=== PATIENT | female | born 1935 | race Caucasian/White ===

== ENCOUNTER 2016-11-20 05:57 | Inpatient (IN) | payer OTHER ==
[~2016-11-20] VITALS: Ht 152.4 cm; Wt 76.0 kg
[2016-11-20 06:17] VITALS: BP 152/66
[2016-11-20 06:35] VITALS: BP 152/66
[2016-11-20] MEDS ORDERED: VERAPAMIL HYDR240 MG PO (12:57)
[2016-11-20] MEDS ORDERED: HYDROCHLOROTH12.5 M2 PO (12:57)
[2016-11-20] MEDS ORDERED: ASPIR 8181 MG PO (12:57)
[2016-11-20 15:03] LABS: T3 TOTAL 1.06 ng/mL
[2016-11-20 16:00] LABS: FREE T4 1.21 ng/dL (0.76-1.46); FREE THYROXINE INDEX 2.7 ug/dL (1.4-4.5); T4(THYROXINE) 7.7 ug/dL (4.7-13.3)
[2016-11-20 16:27] LABS: CHOLESTEROL/HDL RATIO 2.7; MAGNESIUM 1.5 mg/dL (1.8-2.4); PHOSPHOROUS 3.4 mg/dL (2.5-4.9)
[2016-11-20 17:14] VITALS: BP 132/60
[2016-11-20 21:38] VITALS: BP 124/56
[2016-11-21 06:14] VITALS: BP 111/48
[2016-11-21 06:24] LABS: CARBON DIOXIDE 27.3 mmol/L (21-32); CHLORIDE SERUM 105 mmol/L (98-107); CREATININE SERUM 0.8 mg/dL (0.6-1.0); GLUCOSE SERUM 127 mg/dL (74-106); POTASSIUM SERUM 4.4 mmol/L (3.5-5.1); SODIUM SERUM 137 mmol/L (136-145)
[2016-11-21 06:30] LABS: BASOPHIL % 0.1 % (0-2); PLATELET COUNT 154 x10^3mcL (130-400); RED CELL DISTRIBUTION WIDTH 13.7 % (11.5-14.5)
[2016-11-21 09:37] VITALS: BP 137/55
[2016-11-21 12:49] VITALS: BP 134/54
[2016-11-21 17:22] VITALS: BP 154/66
[2016-11-21 21:55] VITALS: BP 144/67
[2016-11-21 23:30] VITALS: BP 135/67
[2016-11-22 06:10] VITALS: BP 144/69
[2016-11-22 06:48] LABS: CALCIUM 7.5 mg/dL (8.5-10.1); CARBON DIOXIDE 28.9 mmol/L (21-32); CHLORIDE SERUM 105 mmol/L (98-107); CREATININE SERUM 0.8 mg/dL (0.6-1.0); GLUCOSE SERUM 104 mg/dL (74-106); MAGNESIUM 2.1 mg/dL (1.8-2.4); PHOSPHOROUS 1.9 mg/dL (2.5-4.9); POTASSIUM SERUM 3.9 mmol/L (3.5-5.1); SODIUM SERUM 139 mmol/L (136-145)
[2016-11-22 06:59] LABS: IRON 23 ug/dL (50-170); TOTAL IRON BINDING CAPACITY 201 ug/dL (250-450)
[2016-11-22 08:10] VITALS: BP 151/73
[2016-11-22 08:30] LABS: PLATELET COUNT 140 x10^3mcL (130-400); RED BLOOD CELLS 2.72 M/mm3 (4.10-5.10)
[2016-11-22 08:39] LABS: BASOPHIL % 0.2 % (0-2); RED CELL DISTRIBUTION WIDTH 13.6 % (11.5-14.5)
[2016-11-22 13:53] VITALS: BP 105/45; BP 110/48
[2016-11-22 14:16] VITALS: BP 110/48
[2016-11-22 15:47] VITALS: BP 123/61
[2016-11-23 12:23] LABS: TRANSFERRIN 163 mg/dL (200-370)
== END 2016-11-22 17:10 | DRG 469 ==
LOC: MU 05:57 → DU 07:30 → MU 11-21 08:03
PROVIDERS: Family Medicine; Family Medicine Sports Medicine; ADMIT Neuromusculoskeletal Medicine, Sports Medicine
PROC: 0MNN0ZZ Release Right Knee Bursa and Ligament, Open Approach (ICD-10-PCS; 2016-11-20)
PROC: 0SRC0J9 Replacement of Right Knee Joint with Synthetic Substitute, Cemented, Open Approach (ICD-10-PCS; principal; 2016-11-20 07:30)
DX: M17.11 Unilateral primary osteoarthritis, right knee (principal); N17.0 Acute kidney failure with tubular necrosis; M21.061 Valgus deformity, not elsewhere classified, right knee; E83.42 Hypomagnesemia; D64.9 Anemia, unspecified; I10 Essential (primary) hypertension; E66.9 Obesity, unspecified; Z68.32 Body mass index [BMI] 32.0-32.9, adult
CPT/HCPCS: 83880; 84439; 94150; 97110-GP; 97116-GP; 97139; 97530-GP; C1713; C1776; J0690; J1650; J2250; J2270; J2405; J2704; J3010; J3475; J3490; J7030; J7120; Q0092

== ENCOUNTER 2018-01-16 06:07 | Inpatient (IN) | payer OTHER ==
[~2018-01-16] VITALS: Ht 152.4 cm; Wt 77.1 kg
[~2018-01-16 06:07] MED LIST: ASPIR 8181 MG PO; HYDROCHLOROTH12.5 M2 PO; VERAPAMIL HYDR240 MG PO
[2018-01-16 06:33] VITALS: BP 148/70
[2018-01-16 13:47] VITALS: BP 144/54
[2018-01-16 16:27] VITALS: BP 146/65
[2018-01-16 21:50] VITALS: BP 150/64
[2018-01-17 05:18] VITALS: BP 147/75
[2018-01-17 06:08] LABS: CALCIUM 8.2 mg/dL (8.5-10.1); CARBON DIOXIDE 31.5 mmol/L (21-32); CHLORIDE SERUM 100 mmol/L (98-107); GLUCOSE SERUM 116 mg/dL (74-106); POTASSIUM SERUM 3.9 mmol/L (3.5-5.1); SODIUM SERUM 134 mmol/L (136-145)
[2018-01-17 06:43] LABS: BASOPHIL % 0.3 % (0-2); PLATELET COUNT 211 x10^3mcL (130-400)
[2018-01-17 10:08] VITALS: BP 134/64
[2018-01-17 16:12] VITALS: BP 136/69
[2018-01-17 21:16] VITALS: BP 140/62
[2018-01-18 06:32] VITALS: BP 127/64
[2018-01-18 09:15] VITALS: BP 119/53
[2018-01-18] MEDS ORDERED: LOV30I SC (12:22)
[2018-01-18] MEDS ORDERED: ACETAMINOPHEN-H1 TA1 PO (12:23)
[2018-01-18 13:29] VITALS: BP 119/53
== END 2018-01-18 15:45 | DRG 470 ==
LOC: MU 06:07
PROVIDERS: Neuromusculoskeletal Medicine, Sports Medicine
PROC: 0MNP0ZZ Release Left Knee Bursa and Ligament, Open Approach (ICD-10-PCS; 2018-01-16)
PROC: 0SRD0J9 Replacement of Left Knee Joint with Synthetic Substitute, Cemented, Open Approach (ICD-10-PCS; principal; 2018-01-16 07:30)
DX: M17.12 Unilateral primary osteoarthritis, left knee (principal); M21.062 Valgus deformity, not elsewhere classified, left knee
CPT/HCPCS: 97110-GP; 97116-GP; 97139; 97530-GP; C1713; C1776; J0690; J1170; J1650; J2405; J3010; J3490; J7030; J7120; Q0092